=== PATIENT | female | born 1960 | race Caucasian/White ===

== ENCOUNTER → 2016-08-13 | Day surgery (SDC) | payer BC ==
[~2016-08-13] MED LIST: ALPRAZOLAM0.5 MG PO; ASPIR-TRIN325 MG PO; DESYREL300 MG PO; GLUCOPHAGE500 M1 PO; HYDROCHLOROTHIA25 MG PO; LIPITOR PO; LISINOPRIL20 MG PO; LUMIGAN2.5 ML OP; NIASPAN1000 MG PO; PROTONIX PO; PROZAC PO; TOPROL XL100 MG PO
--- NOTE | ~2016-08-13 | OR ---
Unit #: [id number] #: [id number] Patient: ANIKA SMITH [id number] [address] [place], [place] [address] [id number] O MR#: [id number] NAME: ANIKA SMITH ROOM: Date of Procedure: 08/13/2016 Admission Date: 08/13/2016 Surgeon: Ellis Catherine M.D. : 1960 Attending Physician: Ellis Catherine M.D. Referring Physician: Ellis Catherine M.D. Primary Care Physician: Julita Sharif M.D. OPERATIVE REPORT PROCEDURES PERFORMED 1. Esophagogastroduodenoscopy with biopsy. 2. Colonoscopy with snare polypectomy. INDICATION FOR PROCEDURE This is a patient with history of colon polyps and also with history of acid reflux. Undergoing evaluation with upper endoscopy and colonoscopy. MEDICATIONS Monitored anesthesia. POSTOPERATIVE FINDINGS 1. There was nonspecific appearing esophagitis involving distal esophagus. Multiple biopsies were taken. 2. Hiatal hernia. 3. Normal stomach. 4. Normal duodenum and distal duodenum. 5. Polyp, 5 mm at transverse colon, snared and sent for histopathology. 6. Rest of the colon exam was normal. 7. Prep was good. PLAN Follow up on the pathology report. Continue PPI therapy and reflux precautions. DESCRIPTION OF PROCEDURE The patient was explained of the procedure, risks, and benefits along with risks and benefits of anesthesia. She was brought to the endoscopy room. Propofol anesthesia was given. Bite block was placed. The scope was passed down the mouth and esophagus, stomach, duodenum, and distal duodenum with findings as described. Biopsies were taken. Gently, I pulled the scope out of the patient's mouth. She was turned down and repositioned for colonoscopy. Rectal exam was done, which was normal. Colonoscope was lubricated, passed up the rectum, advanced under direct vision all the way to the cecum. Cecum was identified by the ileocecal valve and the appendiceal orifice. Polyp seen in transverse colon was snared and sent for histopathology. Rest of the mucosa was normal and healthy. I retroflexed in the rectum, small hemorrhoids were seen. Scope was gently pulled out. She tolerated it well. No major complications. Unit #: [id number] #: [id number] Patient: ANIKA SMITH Dictated by... Marie ShethJ/rigol TD: 08/14/2016 10:52 JOB #: [id number] CC: Ellis Catherine M.D. OPERATIVE REPORT Page 1 of 1 X Ellis Catherine MD PROCEDURE OPERATIVE NOTE
== END | disposition home or self-care (01) ==
LOC: COPS 10:11
DX: K21.0 Gastro-esophageal reflux disease with esophagitis (principal); K44.9 Diaphragmatic hernia without obstruction or gangrene; D12.3 Benign neoplasm of transverse colon; Z86.010 Personal history of colon polyps; E11.9 Type 2 diabetes mellitus without complications; Z79.84 Long term (current) use of oral hypoglycemic drugs; I10 Essential (primary) hypertension; F17.200 Nicotine dependence, unspecified, uncomplicated; Z88.1 Allergy status to other antibiotic agents; Z88.2 Allergy status to sulfonamides; Z79.82 Long term (current) use of aspirin
CPT/HCPCS: 82947; 88305; J2250